=== PATIENT | male | born 1975 | race Caucasian/White ===

== ENCOUNTER 2025-05-27 08:23 | Emergency (ER) | payer OTHER, SELFPAY ==
[2025-05-27 08:25] VITALS: BP 118/79
[2025-05-27 08:34] VITALS: BMI 26.9
--- NOTE | 2025-05-27 08:43 | ED.GENMED ---
History of Present Illness
General
Chief Complaint: Skin Problem
Time Seen by Provider: 05/27/25 08:28
History of Present Illness
History of Present Illness:
49-year-old male presents to the emergency department for evaluation of worsening poison bonnie rash to the extremities and scrotum as well as face over the past 4 days. Concerned that this morning there was a large degree of scrotal edema. Denies
any pain to the scrotum or dysuria. No fevers or chills. No dyspnea or chest tightness
Review of Systems
Review of Systems
Allergies reviewed?: Yes
All Other Systems: ROS reviewed and negative except as documented in HPI and ROS
Phy Exam
Physical Exam
Physical Exam:
GEN: Well appearing, NAD, WDWN
HEENT: Oral mucosa moist, no scleral icterus
Cardiac: Regular rate
Lung: No respiratory distress, no tachypnea
MSK: No gross deformity or injuries
Skin: Good color, no pallor or jaundice, maculopapular exanthem to the right forearm as well as scrotum and both medial lower legs. Moderate scrotal edema, nontender
Neuro: AO x3, moves all extremities freely
Psych: Calm, cooperative
Course
Vital Signs
Initial and Last Documented VS:
Initial Vital Signs
Temp Pulse Resp BP Pulse Ox
98.3 F 80 16 118/79 99
05/27/25 08:25 05/27/25 08:25 05/27/25 08:25 05/27/25 08:25 05/27/25 08:25
Last Documented Vital Signs
Temp Pulse Resp BP Pulse Ox
98.3 F 80 16 118/79 99
05/27/25 08:25 05/27/25 08:25 05/27/25 08:25 05/27/25 08:25 05/27/25 08:45
MDM/Problems Addressed
MDM/Problems Addressed:
Due to widespread reaction will treat with oral steroids, there is significant scrotal edema however no warmth or pain that would suggest cellulitis
*Pulse Oximetry
SaO2: 99
Oxygen Mode of Delivery: Room air
Patient hypoxic: no
*Critical Care Note
Total Time (30-74mins, 75-104mins- exclusive of procedures): Not Applicable
ED Attending Note
-
Portions of this chart may have been created with voice recognition software.� Occasional wrong word or��sound alike� substitutions may have occurred due to the inherent limitations of voice recognition software.
Discharge Plan
Departure
Patient Disposition: Home (Routine Discharge)
Date of Disposition: 05/27/25
Time of Disposition: 08:44
Patient with high blood pressure during this ER visit?: No
Discharge Problem:
Contact dermatitis
Instructions: Poison Bonnie, Poison [place], Poison [place] ED
Prescriptions:
New
prednisone 10 mg tablet
10 mg PO DIRECTED Qty: 43 0RF
Rx Instructions:
Once daily as follows: 60, 60, 50, 50, 40, 40, 30, 30, 20, 20, 10, 10, 5, 5
Interventions
Interventions:
*Risk Screen - Suicide Last Done: 05/27/25 08:25
*General Assessment Last Done: 05/27/25 08:34
*Neglect/Abuse Screening Last Done: 05/27/25 08:25
*ED- Fall Risk Assessment Last Done: 05/27/25 08:34
*ED COVID-19 Vaccine History Last Done: 05/27/25 08:34
*Nursing Disposition Last Done: 05/27/25 09:04
ED-Skin Assessment Last Done: 05/27/25 08:34
Discharge Date and Time
Discharge Date/Time: 05/27/25 09:06
Print Language: [id number]
== END 2025-05-27 09:06 | disposition home or self-care (01) ==
LOC: EMR 08:23
PROVIDERS: EMERGENCY PHYSICIAN Student in an Organized Health Care Education/Training Program
DX: L25.9 Unspecified contact dermatitis, unspecified cause (principal); N50.89 Other specified disorders of the male genital organs
CPT/HCPCS: 99283